=== PATIENT | female | born 1990 | race Hispanic/Latino ===

== ENCOUNTER 2021-03-04 09:46 | Outpatient (CLI) | payer OTHER ==
[2021-03-04 20:42] LABS: SARS-CoV-2 PCR by NAA Not Detected (NotDetected)
== END 2021-03-04 09:47 | disposition home or self-care (01) ==
LOC: CSHLAB 09:46
PROVIDERS: ATTEND Advanced Practice Midwife
DX: Z20.822 Contact with and (suspected) exposure to COVID-19 (principal)
CPT/HCPCS: U0003; U0005

== ENCOUNTER 2021-03-08 04:30 | Inpatient (IN) | payer MEDICAID, OTHER ==
[2021-03-08] MEDS ORDERED: Methylergonovine 0.2 MG/ML VIAL IM PRN (05:16)
[2021-03-08] MEDS ORDERED: Ondansetron PF 4 MG/2 ML Vial IVP PRN ×2 (05:16→06:23)
[2021-03-08] MEDS ORDERED: Carboprost 250 MCG/ML AMP IM PRN (05:16)
[2021-03-08] MEDS ORDERED: Misoprostol 200 MCG TAB PR PRN (05:16)
[2021-03-08] MEDS ORDERED: hydrALAZINE 20 MG/ML VIAL SLOW IVP PRN ×2 (05:16→15:50)
[2021-03-08] MEDS ORDERED: Promethazine HCl 25 MG/ML VIAL IM PRN ×2 (05:16→06:23)
[2021-03-08] MEDS ORDERED: Lidocaine 1% (PF) 30 ML VIAL SC PRN (05:16)
[2021-03-08] MEDS ORDERED: Acetaminophen 500 MG TAB PO PRN (05:16)
[2021-03-08] MEDS ORDERED: Ibuprofen 800 MG TAB PO PRN (05:16)
[2021-03-08] MEDS ORDERED: Butorphanol Tartrate 1 MG/ML VIAL SLOW IVP PRN (05:16)
[2021-03-08] MEDS ORDERED: Docusate 100 MG CAP PO PRN (05:16)
[2021-03-08 05:28] VITALS: BMI 31.5
[2021-03-08] MEDS ORDERED: NS w/ Oxytocin 30 units 500 ML IV SCH ×4 (05:30→15:50)
[2021-03-08 05:34] LABS: Hemoglobin 11.4 g/dL (12.0-15.5); Mean Corpuscular HGB CONC 32.6 g/dL (32.0-36.0); Mean Corpuscular Hemoglobin 26.6 pg (27.0-33.0); Mean Corpuscular Volume 81.6 fl (81.6-98.3); Mean Platelet Volume 9.7 fl (7.4-10.4); Platelet Count 271 10x3/uL (150-450); RBC Distribution Width 16.3 % (11.5-14.5); Red Blood Cell (RBC) Count 4.29 10x6/uL (3.90-5.03)
[2021-03-08] MEDS ORDERED: CADD EPIDURAL SCH (05:45)
[2021-03-08] MEDS ORDERED: FENTANYL EPIDURAL SCH (05:45)
[2021-03-08] MEDS ORDERED: BUP EPIDURAL SCH (05:45)
[2021-03-08 06:02] LABS: Hep B Surf Ag Non-Reactive S/CO (NonReactive)
[2021-03-08 06:03] LABS: Syphilis Antibody Nonreactive (Nonreactive); Syphilis Antibody Index 0.05 S/CO (<1.00 Non-Reactive)
[2021-03-08 06:04] LABS: HBSAg Index 0.16 S/CO (0-0.99)
[2021-03-08] MEDS ORDERED: diphenhydrAMINE 50 MG/ML VIAL IVP PRN (06:23)
[2021-03-08] MEDS ORDERED: Acetaminophen 325 MG TAB PO PRN (06:23)
[2021-03-08] MEDS ORDERED: Lactated Ringer's 500 ML IV PRN (06:23)
[2021-03-08] MEDS ORDERED: ePHEDrine Sulfate 50 MG/10 ML VIAL SLOW IVP PRN (06:23)
[2021-03-08] MEDS ORDERED: Naloxone HCl 0.4 mg/ml Vial IVP PRN ×2 (06:23)
[2021-03-08] MEDS ORDERED: Hydrocerin (Eucerin) Cream 120 gm Jar TOP PRN (06:23)
[2021-03-08] MEDS ORDERED: Communication Order-Pharmacy FS PRN (06:30)
[2021-03-08] MEDS ORDERED: Fentanyl 2 mcg/Bupivacaine 0.1% Cassette 100 ML EPIDURAL SCH (06:30)
[2021-03-08] MEDS: Lactated Ringer's 1,000 ML IV SCH ×2 (07:33→15:58)
[2021-03-08] MEDS ORDERED: Bupivacaine 0.25% HCL 30 ML VIAL ONE (08:00)
[2021-03-08] MEDS ORDERED: HYDROcodone/Acetaminophen 5/325 mg Tablet PO PRN ×3 (08:27→15:50)
[2021-03-08] MEDS ORDERED: Milk Of Magnesia 30 ML UDCUP PO PRN (15:50)
[2021-03-08] MEDS ORDERED: Bisacodyl 10 MG SUPP PR PRN (15:50)
[2021-03-08] MEDS ORDERED: Boostrix 0.5 ML (Tdap) VIAL IM ONE (15:50)
[2021-03-08] MEDS ORDERED: Misoprostol 200 MCG TAB VAG PRN (15:50)
[2021-03-08] MEDS ORDERED: Benzocaine-Menthol 82.5 ML CAN TOP PRN (15:50)
[2021-03-08] MEDS: Ferrous Sulfate 325 MG TAB PO SCH (15:58)
[2021-03-08] MEDS: HYDROcodone/Acetaminophen 5/325 mg Tablet PO PRN ×2 (17:00→23:53)
[2021-03-08] MEDS: Ibuprofen 800 MG TAB PO SCH (21:45)
[2021-03-08] MEDS: Docusate 100 MG CAP PO SCH (21:45)
[2021-03-09] MEDS: Ibuprofen 800 MG TAB PO SCH ×2 (05:36→14:49)
[2021-03-09] MEDS: Ferrous Sulfate 325 MG TAB PO SCH (07:19)
[2021-03-09] MEDS: Docusate 100 MG CAP PO SCH (08:31)
[2021-03-09] MEDS: HYDROcodone/Acetaminophen 5/325 mg Tablet PO PRN (11:04)
[2021-03-09 16:44] VITALS: BP 110/64; TEMP 98.2
== END 2021-03-09 16:50 | disposition home or self-care (01) | DRG 807 ==
LOC: CSHLD/OP 04:30 → CSHLD 05:30 → CSHPP 15:35
PROVIDERS: ADMIT Obstetrics & Gynecology; ATTEND Obstetrics & Gynecology
PROC: 10E0XZZ Delivery of Products of Conception, External Approach (ICD-10-PCS; principal; 2021-03-08)
PROC: 10907ZC Drainage of Amniotic Fluid, Therapeutic from Products of Conception, Via Natural or Artificial Opening (ICD-10-PCS; 2021-03-08)
PROC: 10H07YZ Insertion of Other Device into Products of Conception, Via Natural or Artificial Opening (ICD-10-PCS; 2021-03-08)
DX: O76 Abnormality in fetal heart rate and rhythm complicating labor and delivery (principal); Z37.0 Single live birth; Z3A.39 39 weeks gestation of pregnancy; O24.420 Gestational diabetes mellitus in childbirth, diet controlled
CPT/HCPCS: 36415; 36416; 51702; 85027; 86780; 86850; 86900; 86901; 87340; 99285; J2590; J7120; S0020

== ENCOUNTER 2022-04-07 10:37 | Inpatient (IN) | payer MEDICAID, OTHER, SELFPAY ==
[~2022-04-07 10:37] MED LIST: Bupivacaine/Epinephrine 0.25% 30 ML VIAL ONE
[2022-04-07] MEDS ORDERED: hydrALAZINE 20 MG/ML VIAL SLOW IVP PRN (13:52)
[2022-04-07] MEDS ORDERED: Carboprost 250 MCG/ML AMP IM PRN (13:52)
[2022-04-07] MEDS ORDERED: Promethazine HCl 25 MG/ML VIAL IM PRN ×2 (13:52→16:51)
[2022-04-07] MEDS ORDERED: Ibuprofen 800 MG TAB PO PRN (13:52)
[2022-04-07] MEDS ORDERED: Misoprostol 200 MCG TAB PR PRN (13:52)
[2022-04-07] MEDS ORDERED: Tranexamic Acid 1,000 MG in Sodium Chloride 0.9% 250 ML 250 ML IVPB PRN (13:52)
[2022-04-07] MEDS ORDERED: Methylergonovine 0.2 MG/ML VIAL IM PRN (13:52)
[2022-04-07] MEDS ORDERED: Butorphanol Tartrate 1 MG/ML VIAL SLOW IVP PRN (13:52)
[2022-04-07] MEDS ORDERED: Acetaminophen 500 MG TAB PO PRN (13:52)
[2022-04-07] MEDS ORDERED: Ondansetron PF 4 MG/2 ML Vial IVP PRN ×2 (13:52→16:51)
[2022-04-07] MEDS ORDERED: Lidocaine 1% (PF) 30 ML VIAL SC PRN (13:52)
[2022-04-07] MEDS ORDERED: NS w/ Oxytocin 30 units 500 ML IV SCH ×2 (14:00)
[2022-04-07] MEDS ORDERED: Lactated Ringer's 1,000 ML IV SCH (14:00)
[2022-04-07 15:45] LABS: Hemoglobin 9.2 g/dL (12.0-15.5); Mean Corpuscular HGB CONC 32.5 g/dL (32.0-36.0); Mean Corpuscular Hemoglobin 25.2 pg (27.0-33.0); Mean Corpuscular Volume 77.5 fl (81.6-98.3); Mean Platelet Volume 9.6 fl (7.4-10.4); Platelet Count 270 10x3/uL (150-450); RBC Distribution Width 16.1 % (11.5-14.5); Red Blood Cell (RBC) Count 3.65 10x6/uL (3.90-5.03); White Blood Cell (WBC) Count 5.2 10x3/uL (3.5-10.5)
[2022-04-07] MEDS ORDERED: Fentanyl 2 mcg/Bup 0.1% Cadd 100 ML ONE (16:25)
[2022-04-07 16:36] LABS: Syphilis Antibody Nonreactive (Nonreactive); Syphilis Antibody Index 0.05 S/CO (<1.00 Non-Reactive)
[2022-04-07 16:37] LABS: HBSAg Index 0.16 S/CO (0-0.99); Hep B Surf Ag Non-Reactive S/CO (NonReactive)
[2022-04-07] MEDS ORDERED: Bupivacaine 0.25% 10 ML VIAL EPIDURAL PRN (16:51)
[2022-04-07] MEDS ORDERED: Moisturizing Cream (Eucerin) 113 GM JAR TOP PRN (16:51)
[2022-04-07] MEDS ORDERED: diphenhydrAMINE 50 MG/ML VIAL IVP PRN (16:51)
[2022-04-07] MEDS ORDERED: diphenhydrAMINE 50 MG/ML VIAL IM PRN (16:51)
[2022-04-07] MEDS ORDERED: Naloxone HCl 0.4 mg/ml Vial IVP PRN ×2 (16:51)
[2022-04-07] MEDS ORDERED: Promethazine HCl 25 MG SUPP PR PRN (16:51)
[2022-04-07] MEDS ORDERED: diphenhydrAMINE 25 MG CAP PO PRN (16:51)
[2022-04-07] MEDS ORDERED: Communication Order-Pharmacy FS SCH ×2 (17:00)
[2022-04-07] MEDS ORDERED: Fentanyl 5 mcg/Bupivacaine 0.075% Cassette 100 ML EPIDURAL SCH (17:00)
[2022-04-07 17:43] VITALS: BMI 31.5
[2022-04-07] MEDS ORDERED: NS w/ Oxytocin 30 units 500 ML ONE (18:03)
[2022-04-07 20:10] LABS: SARS-CoV-2 NAA Rapid Test DETECTED (NotDetected)
[2022-04-07] MEDS ORDERED: Zolpidem Tartrate 5 MG TAB PO PRN (21:00)
[2022-04-08] MEDS ORDERED: Bisacodyl 10 MG SUPP PR PRN (00:30)
[2022-04-08] MEDS ORDERED: Promethazine HCl 25 MG/ML VIAL IM PRN (00:30)
[2022-04-08] MEDS ORDERED: hydrALAZINE 20 MG/ML VIAL SLOW IVP PRN (00:30)
[2022-04-08] MEDS ORDERED: Milk Of Magnesia 30 ML UDCUP PO PRN (00:30)
[2022-04-08] MEDS ORDERED: Ondansetron PF 4 MG/2 ML Vial IVP PRN (00:30)
[2022-04-08] MEDS ORDERED: Misoprostol 200 MCG TAB VAG PRN (00:30)
[2022-04-08] MEDS ORDERED: Preparation H Ointment 28 GM TUBE PR PRN (00:30)
[2022-04-08] MEDS ORDERED: Lanolin Ointment 7 GM TUBE TOP PRN (00:30)
[2022-04-08] MEDS ORDERED: Boostrix 0.5 ML (Tdap) VIAL (>/=7 yrs of age) IM ONE (00:30)
[2022-04-08] MEDS ORDERED: NS w/ Oxytocin 30 units 500 ML IV SCH (01:00)
[2022-04-08] MEDS: Ibuprofen 800 MG TAB PO SCH ×4 (01:38→21:55)
[2022-04-08] MEDS ORDERED: HYDROcodone/Acetaminophen 5/325 mg Tablet PO SCH (01:45)
[2022-04-08] MEDS ORDERED: Ibuprofen 800 MG TAB PO SCH (06:00)
[2022-04-08] MEDS: Docusate 100 MG CAP PO SCH ×2 (08:28→21:55)
[2022-04-08] MEDS: Prenatal Vitamin 1 TAB PO SCH (08:28)
[2022-04-08] MEDS: Ferrous Sulfate 325 MG TAB PO SCH ×3 (08:28→21:55)
[2022-04-08] MEDS: Acetaminophen 325 MG TAB PO PRN (14:46)
[2022-04-09] MEDS: Acetaminophen 325 MG TAB PO PRN (00:26)
[2022-04-09] MEDS: Ibuprofen 800 MG TAB PO SCH ×3 (05:58→09:01)
[2022-04-09] MEDS: Prenatal Vitamin 1 TAB PO SCH (09:00)
[2022-04-09] MEDS: Docusate 100 MG CAP PO SCH (09:00)
[2022-04-09] MEDS: Ferrous Sulfate 325 MG TAB PO SCH (09:00)
[2022-04-09 10:58] VITALS: BP 104/59; TEMP 98.8
== END 2022-04-09 13:24 | disposition home or self-care (01) | DRG 807 ==
LOC: CSHLD/OP 10:37 → CSHLD 15:27 → CSHPP 04-08 01:58
PROVIDERS: ADMIT Obstetrics & Gynecology; ATTEND Obstetrics & Gynecology
PROC: 10E0XZZ Delivery of Products of Conception, External Approach (ICD-10-PCS; principal; 2022-04-07)
PROC: 10907ZC Drainage of Amniotic Fluid, Therapeutic from Products of Conception, Via Natural or Artificial Opening (ICD-10-PCS; 2022-04-07)
DX: O32.8XX0 Maternal care for other malpresentation of fetus, not applicable or unspecified (principal); Z37.0 Single live birth; D64.9 Anemia, unspecified; O90.81 Anemia of the puerperium; Z3A.39 39 weeks gestation of pregnancy
CPT/HCPCS: 36415; 51702; 85027; 86780; 86850; 86900; 86901; 87340; 99285; J2590; U0002